=== PATIENT | male | born 1965 | race Caucasian/White ===

== ENCOUNTER 2016-11-23 12:39 | Emergency (ER) | payer SELFPAY ==
[~2016-11-23] VITALS: Ht 182.9 cm; Wt 65.0 kg
[2016-11-23 12:40] VITALS: BP 150/97; PULSE 83; RESP 15; TEMP 98; O2SAT 96
--- NOTE | 2016-11-23 13:10 | PD ---
Physical Exam Time Seen by Provider: 13:08 Narrative 51yo M c/o L lower back pain since Monday. Pain radiates to hip and butt. Says he thinks he strained his lower back. Hx of similar symptoms. Denies IVD use, cancer, fever. Ambulatory in triage. Patient seen in triage. VS reviewed. Patient awaiting bed placement. Data Data Last Documented VS Vital Signs Date Time Temp Pulse Resp B/P Pulse Ox O2 Delivery O2 Flow Rate FiO2 11/23/16 12:40 98.0 83 15 150/97 96 MDM Supervised Visit with RAQUEL: Carolyn Calvo Nov 23, 2016 13:10
[2016-11-23 17:52] VITALS: BP 158/97; PULSE 71; RESP 18; TEMP 97.8; O2SAT 98
[2016-11-23] MEDS ORDERED: MEDI220T PO (17:58)
[2016-11-23] MEDS ORDERED: KETOROLAC TROMETHAMINE 60 MG/2 ML (IM) VIAL IM ONE (18:00)
[2016-11-23] MEDS ORDERED: ORPHENADRINE INJ 60 MG/2 ML AMP IM ONE (18:00)
[2016-11-23] MEDS ORDERED: DEXAMETHASONE SOD PHOS 20 MG/5 ML VIAL IM ONE (18:00)
--- NOTE | 2016-11-23 18:29 | PD ---
HPI Chief Complaint: Back/ Neck Pain or Injury Time Seen by Provider: 18:00 Travel History International Travel<30 days: No Contact w/Intl Traveler<30days: No Traveled to known affect area: No History of Present Illness HPI Patient is a 51-year-old male presenting to the emergency room for evaluation of low back pain. Patient states he was moving something heavy on Monday when it got stuck and he jerked his back. Reports the pain as a 6 out of 10 and states it's throbbing, it's worse with changing positions. He has been using naproxen and cold compresses with no relief of symptoms. He denies any bladder or bowel incontinence, no saddle paresthesia, no weakness. PFSH Past Medical History Hepatitis: Yes (C) Social History Alcohol Use: No Tobacco Use: Yes Substance Use: No Allergies-Medications (Allergen,Severity, Reaction): Coded Allergies: No Known Allergies (Unverified , 11/23/16) Reported Meds & Prescriptions Reported Meds & Active Scripts Active Reported Naproxen Sodium 220 Mg Tab 440 Mg PO BID PRN Review of Systems Except as stated in HPI: all other systems reviewed are Neg Musculoskeletal: Positive: Myalgias, Cramping, Pain Physical Exam Narrative GENERAL: Thin, well-developed, alert male. Rest comfortably in no acute distress. SKIN: Warm and dry. HEAD: Atraumatic. Normocephalic. EYES: Pupils equal and round. No scleral icterus. No injection or drainage. ENT: No nasal bleeding or discharge. Mucous membranes pink and moist. NECK: Trachea midline. No JVD. CARDIOVASCULAR: Regular rate and rhythm. RESPIRATORY: No accessory muscle use. Clear to auscultation. Breath sounds equal bilaterally. GASTROINTESTINAL: Abdomen soft, non-tender, nondistended. Hepatic and splenic margins not palpable. MUSCULOSKELETAL: Extremities without clubbing, cyanosis, or edema. No obvious deformities. Bilateral leg left elicits pain in the left lower back. Tender to palpation in paraspinal musculature in the lumbar region on the left side. NEUROLOGICAL: Awake and alert. No obvious cranial nerve deficits. Motor grossly within normal limits. Five out of 5 muscle strength in the arms and legs. Normal speech. PSYCHIATRIC: Appropriate mood and affect; insight and judgment normal. Data Data Last Documented VS Vital Signs Date Time Temp Pulse Resp B/P Pulse Ox O2 Delivery O2 Flow Rate FiO2 11/23/16 17:52 97.8 71 18 158/97 98 Room Air Orders Ketorolac Inj (Toradol Inj) (11/23/16 18:00) Orphenadrine Inj (Norflex Inj) (11/23/16 18:00) Dexamethasone Inj (Decadron Inj) (11/23/16 18:00) MDM Medical Decision Making Medical Screen Exam Complete: Yes Emergency Medical Condition: Yes Interpretation(s) Vital Signs Date Time Temp Pulse Resp B/P Pulse Ox O2 Delivery O2 Flow Rate FiO2 11/23/16 17:52 97.8 71 18 158/97 98 Room Air 11/23/16 17:52 71 18 11/23/16 12:40 98.0 83 15 150/97 96 Differential Diagnosis Strain versus sprain versus spasm versus discogenic pain versus other Narrative Course Patient is 51-year-old male presenting for evaluation of left lower back pain after lifting a heavy object on Monday. His vital signs are stable, he is neurologically intact. Physical examination. More consistent with muscle strain, muscle spasms. Patient was given Toradol, Norflex, dexamethasone in the emergency department. Patient is encouraged to apply warm moist heat to affected area, continue range of motion exercises, avoid exacerbating activities, avoid bed rest. He was encouraged to follow-up with the primary doctor [facility]. He was encouraged to return to emergency department for any new or worsening symptoms. Diagnosis Primary Impression: Lumbar strain Qualified Code: S39.012A - Lumbar strain, initial encounter Additional Impression: Spasm of lumbar paraspinous muscle Referrals: Primary Care Physician Patient Instructions: General Instructions, Low Back Strain (ED), Muscle Spasm (ED) Additional Instructions: Follow-up with your primary care provider or at the [facility] Take medications as directed Return to emergency department for any new or worsening symptoms Apply warm moist heat to affected area, continue range of motion exercises, avoid bed rest, avoid exacerbating activities. Med/Other Pt SpecificInfo: Prescription(s) given Scripts Prednisone 50 Mg Tab50 Mg PO DAILY 5 Days Ref 0 Prov:Marcela Davila 11/23/16 Ibuprofen 800 Mg [id number] Mg PO Q6HR PRN (PAIN) #40 TAB Ref 0 Prov:Marcela Davila 11/23/16 Cyclobenzaprine (Flexeril)10 Mg Tab10 Mg PO TID PRN (MUSCLE SPASM) 10 Days Ref 0 Prov:Marcela Davila 11/23/16 Disposition: 01 DISCHARGE HOME Condition: Stable Marcela Davila Nov 23, 2016 18:29
[2016-11-23] MEDS ORDERED: CYCL1TAB29 PO (18:48)
[2016-11-23] MEDS ORDERED: IBUP800T23 PO (18:48)
[2016-11-23] MEDS ORDERED: PRED50 PO (18:48)
== END 2016-11-23 19:56 | disposition home or self-care (01) ==
LOC: NEPD 12:39
DX: S39.012A Strain of muscle, fascia and tendon of lower back, initial encounter (principal); M62.830 Muscle spasm of back; X50.9XXA Other and unspecified overexertion or strenuous movements or postures, initial encounter
CPT/HCPCS: 96372; 99284; J1100; J1885; J2360